=== PATIENT | female | born 1940 | race Caucasian/White ===

== ENCOUNTER 2016-12-02 03:50 | Inpatient (IN) | payer MEDICARE, OTHER ==
[2016-12-02] MEDS ORDERED: MORPHINE SULFATE 4 MG/ML SYRINGE IV STA (05:06)
--- NOTE | 2016-12-02 07:32 | ED ---
Lower Extremity Injury HPI - General Chief Complaint: Extremity Injury, Lower Stated Complaint: KNEE INJURY Time Seen by Provider: 12/02/16 03:52 Source: patient Mode of arrival: EMS Limitations: no limitations - History of Present Illness Initial Comments: This patient is a 76-year-old woman who presents to be evaluated for right knee injury. The patient states that she missed a step going into [employer] and tripped. She fell forward and landed on the anterior aspect of her right knee. Since that time she has had increasing swelling and pain. She states that she is now not able to support any weight. The patient was seen at [facility] having a computed tomography scan of her knee which appeared to show a nondisplaced tibial plateau fracture and a patellar hematoma. The patient has had previous ankle surgery with Dr. Shin Suarez and she therefore requested to be seen here by him. MD Complaint: knee injury -: hour(s) Injury: Knee: Right Type of Injury: blunt Place: other ([facility]) Severity: severe Improves With: immobilization Worsens With: weight bearing Context: fall Associated Symptoms: snap/pop sensation Treatments Prior to Arrival: cold therapy - Related Data Home Medications Medication Instructions Recorded Confirmed Calcium Carbonate [Calcium] 600 mg PO DAILY 12/02/16 12/02/16 Cholecalciferol (Vitamin D3) 2,000 unit PO BID 12/02/16 12/02/16 [Vitamin D3] Fish Oil/Dha/Epa [Fish Oil 1,200 1 cap PO DAILY 12/02/16 12/02/16 mg Fish Oil] Furosemide [Lasix] 40 mg PO MOWEFR 12/02/16 12/02/16 Levofloxacin [Levaquin] 500 mg PO DAILY 12/02/16 12/02/16 Levothyroxine Sodium 88 mcg PO DAILY 12/02/16 12/02/16 Metoprolol Tartrate [Lopressor] 12.5 mg PO BID 12/02/16 12/02/16 Montelukast [Singulair] 10 mg PO HS 12/02/16 12/02/16 Omeprazole 20 mg PO DAILY 12/02/16 12/02/16 Potassium 99 mg PO DAILY 12/02/16 12/02/16 Rosuvastatin Calcium [Crestor] 5 mg PO DAILY 12/02/16 12/02/16 Valsartan/Hydrochlorothiazide 0.5 tab PO DAILY 12/02/16 12/02/16 [Valsartan-Hctz 160-12.5 mg Tab] methylPREDNISolone Dose Pack See Taper PO DAILY 12/02/16 12/02/16 [Medrol Dose Pack] Allergies Allergy/AdvReac Type Severity Reaction Status Date / Time atorvastatin [From Lipitor] Allergy Chest Pain Verified 12/02/16 07:23 latex Allergy Rash/Hives Verified 12/02/16 07:23 Sulfa (Sulfonamide Allergy Rash/Hives Verified 12/02/16 07:23 Antibiotics) Review of Systems ROS Statement: Those systems with pertinent positive or pertinent negative responses have been documented in the HPI. ROS Other: All systems not noted in ROS Statement are negative. Constitutional: Denies: fever, chills Respiratory: Denies: cough, dyspnea Cardiovascular: Denies: chest pain, palpitations Gastrointestinal: Denies: abdominal pain, vomiting, diarrhea Genitourinary: Denies: dysuria, frequency Musculoskeletal: Reports: as per HPI, joint swelling, arthralgia. Denies: back pain Neurological: Denies: headache, weakness, numbness Past Medical History Past Medical History: Asthma, COPD, Hyperlipidemia, Hypertension Additional Past Medical History / Comment(s): hiatal hernia History of Any Multi-Drug Resistant Organisms: None Reported Past Surgical History: Hysterectomy Additional Past Surgical History / Comment(s): partial thyroidectomy, hemerrhoids Past Psychological History: No Psychological Hx Reported Smoking Status: Former smoker Past Alcohol Use History: None Reported Past Drug Use History: None Reported - Past Family History Mother Family Medical History: Congestive Heart Failure (CHF) Additional Family Medical History / Comment(s): Mother at the age of 87yrs. Father Family Medical History: Cancer Additional Family Medical History / Comment(s): Father had colitis. He at the age of 31yrs of colon cancer. General Exam Limitations: no limitations General appearance: alert, in no apparent distress Head exam: Present: atraumatic, normocephalic Eye exam: Present: normal appearance Neck exam: Present: normal inspection. Absent: tenderness Respiratory exam: Present: normal lung sounds bilaterally. Absent: respiratory distress, wheezes, rales, rhonchi, stridor, chest wall tenderness Cardiovascular Exam: Present: regular rate, normal rhythm, normal heart sounds. Absent: systolic murmur, diastolic murmur, rubs, gallop GI/Abdominal exam: Present: soft. Absent: distended, tenderness, guarding, rebound Extremities exam: Present: tenderness, normal capillary refill, joint swelling, other (Patient has tenderness and swelling to the anterior aspect of the right knee. No palpable deformity. The patient declines active range of motion exam and does not tolerate passive range of motion.). Absent: pedal edema, calf tenderness Back exam: Absent: CVA tenderness (R), CVA tenderness (L), vertebral tenderness Neurological exam: Present: alert. Absent: motor sensory deficit Skin exam: Present: warm, dry, intact, normal color. Absent: rash Course Vital Signs 12/02/16 12/02/16 12/02/16 03:52 05:26 06:03 Temperature 97.6 F 97.6 F Pulse Rate 85 91 87 Respiratory 16 20 14 Rate Blood Pressure 166/79 150/71 135/61 O2 Sat by Pulse 99 93 L 98 Oximetry 12/02/16 12/02/16 07:58 09:31 Temperature Pulse Rate 93 74 Respiratory 18 18 Rate Blood Pressure 146/73 139/64 O2 Sat by Pulse 97 98 Oximetry Medical Decision Making - Lab Data Result diagrams: 12/03/16 07:26 Disposition Clinical Impression: Traumatic hematoma of right knee, Tibial plateau fracture, right Disposition: HOME SELF-CARE Condition: Stable
[2016-12-02] MEDS ORDERED: NALOXONE 0.4 MG/ML 1 ML VIAL IV PRN (07:38)
[2016-12-02] MEDS: HYDROcodone/APAP 5-325MG 1 EACH TAB PO PRN ×2 (07:55→19:52)
[2016-12-02] MEDS ORDERED: NON-FORMULARY DRUG (Rosuvastatin Calcium [Crestor] 5 MG) PO SCH (09:00)
[2016-12-02] MEDS ORDERED: NON-FORMULARY DRUG (Fish Oil/Dha/Epa [Fish Oil 1,200 Mg Fish Oil] 1 CAP) PO SCH (09:00)
[2016-12-02] MEDS: IPRATROPIUM-ALBUTEROL 3 ML NEB INHALATION PRN ×3 (11:06→20:19)
[2016-12-02] MEDS: SODIUM CHLORIDE 0.9% 1,000 ML IV SCH (11:14)
[2016-12-02] MEDS: HYDROCHLOROTHIAZIDE 25 MG TAB PO SCH (11:16)
[2016-12-02] MEDS: ENOXAPARIN 40 MG/0.4 ML SYRINGE SQ SCH (11:16)
[2016-12-02] MEDS: MORPHINE SULFATE 4 MG/ML SYRINGE IV PRN ×2 (11:22→22:41)
[2016-12-02] MEDS: CALCIUM CARBONATE 500 MG CHEWABLE PO SCH (11:24)
[2016-12-02] MEDS: METOPROLOL TARTRATE 12.5 MG TAB PO SCH ×2 (11:24→21:02)
[2016-12-02] MEDS: LEVOTHYROXINE 88 MCG TAB PO SCH (11:24)
[2016-12-02] MEDS: LEVOFLOXACIN 500 MG TAB PO SCH (11:25)
[2016-12-02] MEDS: POTASSIUM CHLORIDE ORAL LIQUID 40 MEQ/30 ML CUP PO SCH (11:25)
[2016-12-02] MEDS: CHOLECALCIFEROL 1,000 UNIT TAB PO SCH ×2 (11:25→21:02)
[2016-12-02] MEDS: PANTOPRAZOLE 40 MG TABLET PO SCH (11:26)
[2016-12-02] MEDS: VALSARTAN 80 MG TAB PO SCH (11:26)
--- NOTE | 2016-12-02 12:42 | P.CONS ---
History of Present Illness - Reason for Consult Consult date: 12/02/16 Medical management Requesting physician: Shin Suarez - Chief Complaint Fall with nondisplaced tibial fracture, COPD, hypertension, hyperlipidemia, - History of Present Illness 76-year-old female [address] Ball's patient with past medical history of COPD and chronic bronchitis, history of hypertension, hyperlipidemia, and chronic history of hiatal hernia with multiple blood episode of aspiration pneumonia and infection repeatedly. Patient was transferred from 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 Pain become much worse over night ended up going to [facility] where was seen her CT of the leg showed prepatellar hematoma and nondisplaced medial Tibial plateau fracture. Patient requested to be transfer to see Dr. Shin Suarez. Review of Systems Constitutional: Reports chronic headaches, Reports fatigue, Reports fever, Reports lethargy, Reports weight gain, Denies as per HPI, Denies anorexia, Denies chills, Denies chronic pain, Denies daytime sleepiness, Denies malaise, Denies night sweats, Denies poor appetite, Denies sweats, Denies weakness, Denies weight loss Eyes: bilateral as per HPI Ears: bilateral: decreased hearing Ears, nose, mouth and throat: Reports nasal congestion, Reports sinus pain, Reports sinus pressure, Denies as per HPI, Denies ant. neck pain, Denies bleeding gums, Denies dental pain, Denies dysphagia, Denies epistaxis, Denies headache, Denies hoarseness, Denies mouth pain, Denies nasal discharge, Denies neck fullness/pressure, Denies neck lump, Denies nose pain, Denies odynophagia, Denies post-nasal drip, Denies swelling in mouth, Denies swelling in throat, Denies sore throat, Denies vertigo, Denies voice changes Cardiovascular: Reports claudication, Reports decreased exercise tolerance, Reports dyspnea on exertion, Reports edema, Reports high blood pressure, Reports irregular heart beat, Reports leg edema, Reports lightheadedness, Reports orthopnea, Reports paroxysmal nocturnal dyspnea, Reports rapid heart beat, Reports shortness of breath, Denies as per HPI, Denies chest pain, Denies palpitations, Denies phlebitis, Denies syncope Respiratory: Reports congestion, Reports cough, Reports dyspnea, Reports pain on inspiration, Reports respiratory infections, Reports wheezing, Denies as per HPI, Denies cough with sputum, Denies excessive sputum, Denies hemoptysis, Denies home oxygen, Denies pain, Denies pleurisy, Denies sleep apnea, Denies snoring Gastrointestinal: Reports abdominal pain, Reports bloating, Reports dyspepsia, Reports excessive gas, Reports heartburn, Reports indigestion, Reports nausea, Denies as per HPI, Denies belching, Denies BRBPR, Denies change in bowel habits , Denies coffee ground emesis, Denies constipation, Denies diarrhea, Denies early satiety, Denies hematemesis, Denies hematochezia, Denies jaundice, Denies lactose intolerance, Denies loss of appetite, Denies melena, Denies vomiting Genitourinary: Reports dysuria, Reports urgency, Reports urinary frequency, Denies as per HPI, Denies abnormal vaginal bleeding, Denies decreased libido, Denies difficulty conceiving, Denies difficulty voiding, Denies dysmenorrhea, Denies dyspareunia, Denies flank pain, Denies genital sores, Denies hematuria, Denies hot flashes, Denies incomplete emptying, Denies kidney stones, Denies menorrhagia, Denies mixed incontinence, Denies nocturia, Denies pelvic pain, Denies post void dribbling, Denies , Denies prolapse symptoms, Denies stress incontinence, Denies urge incontinence, Denies vaginal discharge, Denies vaginal dryness, Denies vaginal itching, Denies vaginal odor Musculoskeletal: Reports fractures, Reports frequent falls, Reports gait dysfunction, Reports loss of height, Reports low back pain, Reports myalgias, Reports neck pain, Denies as per HPI, Denies arm numbness/tingling, Denies atrophy, Denies hot joints, Denies leg numbness/tingling, Denies limitation of motion, Denies morning stiffness, Denies muscle cramps, Denies muscle weakness, Denies neck stiffness, Denies prior amputations, Denies redness of joints, Denies shooting arm pain, Denies shooting leg pain Musculoskeletal: right: knee pain, knee stiffness, knee swelling, bilateral: ankle pain Integumentary: Reports pruritus, Reports rash, Reports sores, Denies as per HPI , Denies acne, Denies boils, Denies brittle nails, Denies change in hair/nails, Denies color changes, Denies darkening of skin, Denies depigmentation, Denies dryness, Denies foot/leg ulcers, Denies growths, Denies hirsutism, Denies lesions, Denies onychomycosis, Denies striae, Denies unusual bruising, Denies wounds Neurological: Reports paresthesias, Reports tingling, Denies as per HPI, Denies aphasia, Denies ataxia, Denies balance difficulties, Denies burning pain, Denies change in mentation, Denies change in smell/taste, Denies change in speech, Denies confusion, Denies convulsions, Denies double vision, Denies gait dysfunction, Denies head injury, Denies headaches, Denies hearing difficulties, Denies lack of coordination, Denies loss of vision, Denies memory loss, Denies migraines, Denies motor disturbance, Denies numbness, Denies paralysis, Denies seizures, Denies sensory deficit, Denies spasticity, Denies syncope, Denies tic , Denies transient paralysis, Denies tremors, Denies vertigo, Denies weakness, Denies visual changes Psychiatric: Reports anhedonia, Reports anxiety, Denies as per HPI, Denies anxiety attacks, Denies change in appetite, Denies change in libido, Denies change in sleep habits, Denies confusion, Denies depression, Denies difficulty concentrating, Denies disorientation, Denies hallucinations, Denies hopelessness , Denies hypersomnia, Denies insomnia, Denies irritability, Denies memory loss, Denies mood swings, Denies paranoia, Denies sadness/tearfulness, Denies sleep disturbances, Denies suicidal ideation Endocrine: Reports cold intolerance, Reports excessive thirst, Reports fatigue, Reports polyuria, Denies as per HPI, Denies deepening of the voice, Denies excessive sweating, Denies flushing, Denies heat intolerance, Denies high blood sugars, Denies increase in ring/shoe/hat size, Denies low blood sugars, Denies nocturia, Denies palpitations, Denies polydipsia, Denies polyphagia, Denies proptosis, Denies recent glucocorticoid use, Denies thyroid mass, Denies weight change Hematologic/Lymphatic: Reports easy bruising, Denies as per HPI, Denies easy bleeding, Denies lymphadenopathy, Denies lymphedema, Denies thrombophilia Allergic/Immunologic: Reports allergic rhinitis, Denies as per HPI, Denies anaphylaxis, Denies angioedema, Denies gluten intolerance, Denies persistent infections, Denies seasonal allergies, Denies urticaria, Denies wheezing Past Medical History Past Medical History: Asthma, COPD, GERD/Reflux, GI Bleed, Hyperlipidemia, Hypertension, Myocardial Infarction ([place]), Pneumonia, Renal Disease, Thyroid Disorder Additional Past Medical History / Comment(s): Gastritis, hiatal hernia, aspiration pneumonias, gastric ulcers, bronchitis, mitral/aortic/triduspid valve leaks, CKD stage III, hypothyroid, varicosities, occasional swelling of bilateral ankles up to knees, cataracts bilaterally. Last Myocardial Infarction Date:: 2012 History of Any Multi-Drug Resistant Organisms: None Reported Past Surgical History: Hysterectomy, Orthopedic Surgery Additional Past Surgical History / Comment(s): partial thyroidectomy, EGD/ colonoscopy, hemorrhoidectomy, R ankle surgery due to fracture. Past Anesthesia/Blood Transfusion Reactions: No Reported Reaction Smoking Status: Former smoker - Past Family History Mother Family Medical History: Congestive Heart Failure (CHF) Additional Family Medical History / Comment(s): Mother at the age of 87yrs. Father Family Medical History: Cancer Additional Family Medical History / Comment(s): Father had colitis. He at the age of 31yrs of colon cancer. Medications and Allergies Home Medications Medication Instructions Recorded Confirmed Type Calcium Carbonate [Calcium] 600 mg PO DAILY 12/02/16 12/02/16 History Cholecalciferol (Vitamin D3) 2,000 unit PO BID 12/02/16 12/02/16 History [Vitamin D3] Fish Oil/Dha/Epa [Fish Oil 1,200 1 cap PO DAILY 12/02/16 12/02/16 History mg Fish Oil] Furosemide [Lasix] 40 mg PO MOWEFR 12/02/16 12/02/16 History Levofloxacin [Levaquin] 500 mg PO DAILY 12/02/16 12/02/16 History Levothyroxine Sodium 88 mcg PO DAILY 12/02/16 12/02/16 History Metoprolol Tartrate [Lopressor] 12.5 mg PO BID 12/02/16 12/02/16 History Montelukast [Singulair] 10 mg PO HS 12/02/16 12/02/16 History Omeprazole 20 mg PO DAILY 12/02/16 12/02/16 History Potassium 99 mg PO DAILY 12/02/16 12/02/16 History Rosuvastatin Calcium [Crestor] 5 mg PO DAILY 12/02/16 12/02/16 History Valsartan/Hydrochlorothiazide 0.5 tab PO DAILY 12/02/16 12/02/16 History [Valsartan-Hctz 160-12.5 mg Tab] methylPREDNISolone Dose Pack See Taper PO DAILY 12/02/16 12/02/16 History [Medrol Dose Pack] Allergies Allergy/AdvReac Type Severity Reaction Status Date / Time atorvastatin [From Lipitor] Allergy Chest Pain Verified 12/02/16 07:23 latex Allergy Rash/Hives Verified 12/02/16 07:23 Sulfa (Sulfonamide Allergy Rash/Hives Verified 12/02/16 07:23 Antibiotics) Physical Exam Vitals: Vital Signs Temp Pulse Resp BP Pulse Ox 12/02/16 11:16 90 12/02/16 11:07 88 12/02/16 09:31 74 18 139/64 98 12/02/16 07:58 93 18 146/73 97 12/02/16 06:03 87 14 135/61 98 12/02/16 05:26 97.6 F 91 20 150/71 93 L 12/02/16 03:52 97.6 F 85 16 166/79 99 Intake and Output 12/01/16 12/02/16 12/02/16 22:59 06:59 14:59 Other: Voiding Method Toilet Weight 82.1 kg - Constitutional General appearance: average body habitus, cooperative, no disheveled, no mild distress, no morbidly obese, no acute distress, no obese, no severe distress, no thin - EENT Eyes: no abnormal pupil, no anicteric sclerae, no disc margins sharp, no edentulous, no EOMI, no PERRLA, no fundus normal, no photophobia, no dentition normal, no poor dentition, no ptosis, scleral icterus, no normal appearance ENT: no hard of hearing, no hearing grossly normal, no NA/AT, normal oropharynx , no other, no pharyngeal erythema, no thrush, no tonsillar exudates, no tonsillar swelling Ears: bilateral: normal, bulging - Neck Neck: no lymphadenopathy, normal ROM, no other, no rigidity, no stridor, no thyromegaly Carotids: bilateral: upstroke normal Thyroid: bilateral: normal size - Respiratory Respiratory: bilateral: diminished, dullness, rales - Cardiovascular Rhythm: regular Heart sounds: normal: S1, S2 Abnormal Heart Sounds: systolic murmur, S3 Gallop - Gastrointestinal General gastrointestinal: absent bowel sounds, no decreased bowel sounds, no distended, no hepatomegaly, no hyperactive bowel sounds, no normal bowel sounds , no organomegaly, no rigid, no scaphoid, soft, no splenomegaly, no tenderness, no umbilical hernia, no ventral hernia - Integumentary Integumentary: no calor, no cellulitis, no cyanotic, no decreased turgor, no flushed, no jaundiced, normal, no normal turgor, pale, rash, no ulcer - Neurologic Neurologic: CNII-XII intact - Musculoskeletal Right knee has a brace on still have significant swelling pain and discomfort not been able to their weight on it. Musculoskeletal: gait normal, generalized weakness, strength equal bilaterally - Psychiatric Psychiatric: A&O x's 3, appropriate affect Results CBC & Chem 7: 12/03/16 07:26 12/03/16 07:26 Assessment and Plan Plan: 1 nondisplaced medial tibial plateau fracture: Patient is seen or felt surgical intervention versus conservative management with brace physical therapy and no weightbearing might be recommended. 2 COPD with mild exacerbation with recent episode remain on tapering dose of steroid along with albuterol and Pulmicort. 3 severe bronchitis: With recurrent episode of bronchitis and aspiration pneumonia has been on Levaquin will continue medication to finish her current course and dose. 4 severe hiatal hernia: Patient is on pantoprazole daily continue medication and if needed can add Pepcid daily as well. 5 hypertension: Remain on valsartan HCT and metoprolol. 6 Hypothyroidism continue levothyroxine. 7 CKD stage 3 still doing BUN and Creat daily and keep Hydration. 8 Hyperlipidemia: On Crestor 5 mg a day. 9 GI prophylaxis: Patient will be on Protonix. 10 DVT prophylaxis: Patient will be on Lovenox 40 mg daily. CODE STATUS: Full code. Dr. Suarez thank you much for the consult if I can be any further help to please let me know.
--- NOTE | 2016-12-02 13:13 | P.HPOR ---
History of Present Illness H&P Date: 12/02/16 Chief Complaint: tibial plateau fracture This jarad 76-year-old female who fell yesterday when she missed the top step, sustaining injury to her right knee. On exam and x-ray in the emergency department she is found to have a nondisplaced tibial plateau fracture which was confirmed with CT scan. Emergency department at [facility] notified our office of the injury. The ER was advised the patient may be discharged to home in a knee immobilizer and follow up with our office. She was subsequently transferred to [facility] emergency department and admitted to our service. We were notified after the fact. The patient is seen and evaluated and [facility]'s emergency department. Past Medical History Past Medical History: Asthma, COPD, GERD/Reflux, GI Bleed, Hyperlipidemia, Hypertension, Myocardial Infarction ([place]), Pneumonia, Renal Disease, Thyroid Disorder Additional Past Medical History / Comment(s): Gastritis, hiatal hernia, aspiration pneumonias, gastric ulcers, bronchitis, mitral/aortic/triduspid valve leaks, CKD stage III, hypothyroid, varicosities, occasional swelling of bilateral ankles up to knees, cataracts bilaterally. Last Myocardial Infarction Date:: 2012 History of Any Multi-Drug Resistant Organisms: None Reported Past Surgical History: Hysterectomy, Orthopedic Surgery Additional Past Surgical History / Comment(s): partial thyroidectomy, EGD/ colonoscopy, hemorrhoidectomy, R ankle surgery due to fracture. Past Anesthesia/Blood Transfusion Reactions: No Reported Reaction Smoking Status: Former smoker - Past Family History Mother Family Medical History: Congestive Heart Failure (CHF) Additional Family Medical History / Comment(s): Mother at the age of 87yrs. Father Family Medical History: Cancer Additional Family Medical History / Comment(s): Father had colitis. He at the age of 31yrs of colon cancer. Medications and Allergies Home Medications Medication Instructions Recorded Confirmed Type Calcium Carbonate [Calcium] 600 mg PO DAILY 12/02/16 12/02/16 History Cholecalciferol (Vitamin D3) 2,000 unit PO BID 12/02/16 12/02/16 History [Vitamin D3] Fish Oil/Dha/Epa [Fish Oil 1,200 1 cap PO DAILY 12/02/16 12/02/16 History mg Fish Oil] Furosemide [Lasix] 40 mg PO MOWEFR 12/02/16 12/02/16 History Levofloxacin [Levaquin] 500 mg PO DAILY 12/02/16 12/02/16 History Levothyroxine Sodium 88 mcg PO DAILY 12/02/16 12/02/16 History Metoprolol Tartrate [Lopressor] 12.5 mg PO BID 12/02/16 12/02/16 History Montelukast [Singulair] 10 mg PO HS 12/02/16 12/02/16 History Omeprazole 20 mg PO DAILY 12/02/16 12/02/16 History Potassium 99 mg PO DAILY 12/02/16 12/02/16 History Rosuvastatin Calcium [Crestor] 5 mg PO DAILY 12/02/16 12/02/16 History Valsartan/Hydrochlorothiazide 0.5 tab PO DAILY 12/02/16 12/02/16 History [Valsartan-Hctz 160-12.5 mg Tab] methylPREDNISolone Dose Pack See Taper PO DAILY 12/02/16 12/02/16 History [Medrol Dose Pack] Allergies Allergy/AdvReac Type Severity Reaction Status Date / Time atorvastatin [From Lipitor] Allergy Chest Pain Verified 12/02/16 07:23 latex Allergy Rash/Hives Verified 12/02/16 07:23 Sulfa (Sulfonamide Allergy Rash/Hives Verified 12/02/16 07:23 Antibiotics) Physical Examination this is a pleasant 76-year-old female in no acute distress. She is alert and oriented 3. Exam of the head and neck reveal no obvious deformity. She has full cervical spine motion without difficulty or pain. There is no pain with palpation about the cervical spine or paraspinal musculature. Exam of the upper extremities reveals no obvious deformity. There is no pain about the shoulders, elbows, wrists or fingers. No swelling or ecchymosis noted. She has fairly good motion of the upper extremities. Exam of the lower extremities reveals significant ecchymosis about the right knee with mild to moderate swelling. There are very subtle abrasions noted. No open wounds or lacerations. She is able to straight leg raise bilaterally. No pain with log roll bilaterally. She has full foot and ankle motion bilaterally. Neurovascular status to the lower extremities is intact. Results CT scan of the right knee reveals a nondisplaced tibial plateau fracture. No other fractures identified. Assessment and Plan (1) Tibial plateau fracture, right Status: Acute Plan: The clinical and CT scan findings are discussed with the patient. I ordered a knee immobilizer and physical therapy for gait training. She is nonweightbearing to the right lower extremity.we will reevaluate tomorrow for possible discharge home.
[2016-12-02 14:50] VITALS: BMI 35.3
[2016-12-02] MEDS: MONTELUKAST 10 MG TAB PO SCH (21:02)
[2016-12-02] MEDS: CRESTOR 5 MG PO SCH (21:51)
[2016-12-03] MEDS: LEVOTHYROXINE 88 MCG TAB PO SCH (06:25)
[2016-12-03] MEDS: IPRATROPIUM-ALBUTEROL 3 ML NEB INHALATION PRN ×4 (07:46→20:22)
[2016-12-03 07:56] LABS: Basophils % (A) 1 %; Eosinophils # (A) 0.4 k/uL (0-0.7); Eosinophils % (A) 4 %; HCT 37.1 % (34.0-46.0); HDW 2.29; HGB 11.8 gm/dL (11.4-16.0); Hypochromasia Slight; Luc # (Auto) 0.19; Luc % (Auto) 2; Lymphocytes # (A) 1.6 k/uL (1.0-4.8); Lymphocytes % (A) 17 %; MCH 28.9 pg (25.0-35.0); MCHC 31.8 g/dL (31.0-37.0); MCV 90.9 fL (80.0-100.0); Monocytes # (A) 0.9 k/uL (0-1.0); Monocytes % (A) 10 %; Neutrophils # (A) 6.2 k/uL (1.3-7.7); Neutrophils % (A) 67 %; RBC 4.08 m/uL (3.80-5.40); RDW 14.7 % (11.5-15.5); WBC 9.2 k/uL (3.8-10.6); WBC (Perox) 9.68
[2016-12-03 08:06] LABS: Calcium 9.5 mg/dL (8.4-10.2); Potassium 3.7 mmol/L (3.5-5.1); Total Bilirubin 0.4 mg/dL (0.2-1.3)
[2016-12-03] MEDS: ENOXAPARIN 40 MG/0.4 ML SYRINGE SQ SCH (08:19)
[2016-12-03] MEDS: POTASSIUM CHLORIDE ORAL LIQUID 40 MEQ/30 ML CUP PO SCH (08:19)
[2016-12-03] MEDS: LEVOFLOXACIN 500 MG TAB PO SCH (08:19)
[2016-12-03] MEDS: METOPROLOL TARTRATE 12.5 MG TAB PO SCH ×2 (08:19→22:17)
[2016-12-03] MEDS: PANTOPRAZOLE 40 MG TABLET PO SCH (08:19)
[2016-12-03] MEDS: HYDROCHLOROTHIAZIDE 25 MG TAB PO SCH (08:20)
[2016-12-03] MEDS: FUROSEMIDE 40 MG TAB PO SCH (08:20)
[2016-12-03] MEDS: SODIUM CHLORIDE 0.9% 1,000 ML IV SCH (08:20)
[2016-12-03] MEDS: CHOLECALCIFEROL 1,000 UNIT TAB PO SCH ×2 (08:20→22:16)
[2016-12-03] MEDS: CALCIUM CARBONATE 500 MG CHEWABLE PO SCH (08:20)
[2016-12-03] MEDS: VALSARTAN 80 MG TAB PO SCH (10:35)
--- NOTE | 2016-12-03 11:01 | P.PN ---
Subjective Principal diagnosis: Right tibial plateau fracture Pleasant 76 year old female who we are following for a stable tibial plateau fracture, awaiting placement for inpatient rehab. She states pain is well controlled and has no current complaints. Objective - Vital Signs Vital signs: Vital Signs Temp 96.4 F L 12/03/16 07:00 Pulse 88 12/03/16 08:01 Resp 18 12/03/16 07:00 BP 120/67 12/03/16 07:00 Pulse Ox 96 12/03/16 07:00 Intake & Output 12/02/16 12/03/16 12/03/16 18:59 06:59 18:59 Intake Total 1000 Balance 1000 Weight 82.1 kg Intake: Intake, IV Titration 1000 Amount Sodium Chloride 0.9% 1, 1000 000 ml @ 20 mls/hr IV . Q24H [facility] Rx#:[id number] Other: Voiding Method Bedpan Bedpan # Voids 1 2 1 - Exam 76 year old female in no acute distress, A&O x 3. Able to do straight leg raise, neurovascularly intact. Full foot and ankle motion with no pain, negative Homans. Knee immobilizer in place on right leg. - Labs CBC & Chem 7: 12/03/16 07:26 12/03/16 07:26 Labs: Abnormal Lab Results - Last 24 Hours (Table) 12/03/16 Range/Units 07:26 BUN 41 H (7-17) mg/dL Creatinine 2.49 H (0.52-1.04) mg/dL Total Protein 6.0 L (6.3-8.2) g/dL Albumin 3.1 L (3.5-5.0) g/dL Assessment and Plan (1) Tibial plateau fracture, right Status: Acute Plan: The clinical and CT scan findings are discussed with the patient. I ordered a knee immobilizer and physical therapy for gait training. She is nonweightbearing to the right lower extremity.we will reevaluate tomorrow for possible discharge to rehab.
--- NOTE | 2016-12-03 12:15 | P.PN ---
Subjective 76-year-old female [address] Ball[address] patient with past medical history of COPD and chronic bronchitis, history of hypertension, hyperlipidemia, and chronic history of hiatal hernia with multiple blood episode of aspiration pneumonia and infection repeatedly. 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 Pain become much worse over night ended up going to [facility] where was seen her CT of the leg showed prepatellar hematoma and nondisplaced medial Tibial plateau fracture. Patient requested to be transfer to see Dr. Shin Suarez. 12/03: The patient was seen and evaluated today. She was sitting up in her recliner with leg elevated and and in knee immobilizer. She is currently nonweightbearing. Kidney function BUN 41, creatinine 2.49, patient has known history of chronic kidney disease stage III. Incentive spirometer ordered today. She reports pain is controlled with current pain medications. Patient remains on Levaquin for her bronchitis and COPD. Objective - Vital Signs Vital signs: Vital Signs Temp 96.4 F L 12/03/16 07:00 Pulse 88 12/03/16 08:01 Resp 18 12/03/16 07:00 BP 120/67 12/03/16 07:00 Pulse Ox 96 12/03/16 07:00 Intake & Output 12/02/16 12/03/16 12/03/16 18:59 06:59 18:59 Intake Total 1000 Balance 1000 Weight 82.1 kg Intake: Intake, IV Titration 1000 Amount Sodium Chloride 0.9% 1, 1000 000 ml @ 20 mls/hr IV . Q24H [facility] Rx#:[id number] Other: Voiding Method Bedpan Bedpan # Voids 1 2 2 - Exam - Constitutional General appearance: average body habitus, cooperative, no disheveled, no mild distress, no morbidly obese, no acute distress, no obese, no severe distress, no thin - EENT Eyes: no abnormal pupil, no anicteric sclerae, no disc margins sharp, no edentulous, no EOMI, no PERRLA, no fundus normal, no photophobia, no dentition normal, no poor dentition, no ptosis, scleral icterus, no normal appearance ENT: no hard of hearing, no hearing grossly normal, no NA/AT, normal oropharynx , no other, no pharyngeal erythema, no thrush, no tonsillar exudates, no tonsillar swelling Ears: bilateral: normal, bulging - Neck Neck: no lymphadenopathy, normal ROM, no other, no rigidity, no stridor, no thyromegaly Carotids: bilateral: upstroke normal Thyroid: bilateral: normal size - Respiratory Respiratory: bilateral: diminished, dullness, rales - Cardiovascular Rhythm: regular Heart sounds: normal: S1, S2 Abnormal Heart Sounds: systolic murmur, S3 Gallop - Gastrointestinal General gastrointestinal: absent bowel sounds, no decreased bowel sounds, no distended, no hepatomegaly, no hyperactive bowel sounds, no normal bowel sounds , no organomegaly, no rigid, no scaphoid, soft, no splenomegaly, no tenderness, no umbilical hernia, no ventral hernia - Integumentary Integumentary: no calor, no cellulitis, no cyanotic, no decreased turgor, no flushed, no jaundiced, normal, no normal turgor, pale, rash, no ulcer - Neurologic Neurologic: CNII-XII intact - Musculoskeletal Right knee has a brace on still have significant swelling pain and discomfort not been able to their weight on it. Musculoskeletal: gait normal, generalized weakness, strength equal bilaterally - Psychiatric Psychiatric: A&O x's 3, appropriate affect - Labs CBC & Chem 7: 12/03/16 07:26 12/03/16 07:26 Labs: Abnormal Lab Results - Last 24 Hours (Table) 12/03/16 Range/Units 07:26 BUN 41 H (7-17) mg/dL Creatinine 2.49 H (0.52-1.04) mg/dL Total Protein 6.0 L (6.3-8.2) g/dL Albumin 3.1 L (3.5-5.0) g/dL Assessment and Plan Plan: 1 nondisplaced medial tibial plateau fracture: Patient is seen or felt surgical intervention versus conservative management with brace physical therapy and no weightbearing might be recommended. 2 COPD with mild exacerbation with recent episode remain on tapering dose of steroid along with albuterol and Pulmicort. 3 severe bronchitis: With recurrent episode of bronchitis and aspiration pneumonia has been on Levaquin will continue medication to finish her current course and dose. 4 severe hiatal hernia: Patient is on pantoprazole daily continue medication and if needed can add Pepcid daily as well. 5 hypertension: Remain on valsartan HCT and metoprolol. 6 Hypothyroidism continue levothyroxine. 7 CKD stage 3 still doing BUN and Creat daily and keep Hydration. 8 Hyperlipidemia: On Crestor 5 mg a day. 9 GI prophylaxis: Patient will be on Protonix. 10 DVT prophylaxis: Patient will be on Lovenox 40 mg daily. CODE STATUS: Full code. The above impression and plan of care have been discussed and directed by signing physician. Emily Cortez nurse practitioner acting as scribe for signing physician.
--- NOTE | 2016-12-03 12:33 | P.CONS ---
History of Present Illness - Chief Complaint Walking difficulty - History of Present Illness I had the op to see patient for inpatient rehab consultation with regard to walking difficulty. She reports fall attempting steps and right knee pain. X- ray demonstrated tibial plateau fracture. Evaluated by orthopedics and currently treated with knee immobilizer and nonweightbearing. PT prescribed and discussed maximal assistance for sitting and transfers. I have added OT. Previous functional history as elicited from patient: 76-year-old left-handed white female is lives in the seventh floor apartment, elevator's, alone. History smoking but doesn't smoke or drink currently. Retired. Describes independent with own cooking, laundry, driving, sitdown shower and gait without device. She did have a standard cane though. Dr. Ball is regular doctor. Family history of cancer in father and cardiac disease in mother. Review of Systems Review of systems: ENT: Denies sneezes or discharge. Eyes: Denies discharge or photophobia. Cardiac: Denies chest pain or palpitation. Pulmonary: Denies cough or shortness of breath. Breast: Denies discharge or lumps. Gastrointestinal: Denies nausea, emesis, constipation, diarrhea. Genitourinary: Denies discharge or frequency. Musculoskeletal: Discomfort and right knee. Neurologic: Denies motor or sensory change. Endocrine: Denies shakes or sweats. Oncology: Denies cancers. Dermatologic: Denies rash, itching, pruritus. ALLERGY/immunology: Denies sneezes, rashes. Past Medical History Past Medical History: Asthma, COPD, GERD/Reflux, GI Bleed, Hyperlipidemia, Hypertension, Myocardial Infarction (CT), Pneumonia, Renal Disease, Thyroid Disorder Additional Past Medical History / Comment(s): Gastritis, hiatal hernia, aspiration pneumonias, gastric ulcers, bronchitis, mitral/aortic/triduspid valve leaks, CKD stage III, hypothyroid, varicosities, occasional swelling of bilateral ankles up to knees, cataracts bilaterally. Last Myocardial Infarction Date:: 2012 History of Any Multi-Drug Resistant Organisms: None Reported Past Surgical History: Hysterectomy, Orthopedic Surgery Additional Past Surgical History / Comment(s): partial thyroidectomy, EGD/ colonoscopy, hemorrhoidectomy, R ankle surgery due to fracture. Past Anesthesia/Blood Transfusion Reactions: No Reported Reaction Smoking Status: Former smoker - Past Family History Mother Family Medical History: Congestive Heart Failure (CHF) Additional Family Medical History / Comment(s): Mother at the age of 87yrs. Father Family Medical History: Cancer Additional Family Medical History / Comment(s): Father had colitis. He at the age of 31yrs of colon cancer. Medications and Allergies Home Medications Medication Instructions Recorded Confirmed Type Calcium Carbonate [Calcium] 600 mg PO DAILY 12/02/16 12/02/16 History Cholecalciferol (Vitamin D3) 2,000 unit PO BID 12/02/16 12/02/16 History [Vitamin D3] Fish Oil/Dha/Epa [Fish Oil 1,200 1 cap PO DAILY 12/02/16 12/02/16 History mg Fish Oil] Furosemide [Lasix] 40 mg PO MOWEFR 12/02/16 12/02/16 History Levofloxacin [Levaquin] 500 mg PO DAILY 12/02/16 12/02/16 History Levothyroxine Sodium 88 mcg PO DAILY 12/02/16 12/02/16 History Metoprolol Tartrate [Lopressor] 12.5 mg PO BID 12/02/16 12/02/16 History Montelukast [Singulair] 10 mg PO HS 12/02/16 12/02/16 History Omeprazole 20 mg PO DAILY 12/02/16 12/02/16 History Potassium 99 mg PO DAILY 12/02/16 12/02/16 History Rosuvastatin Calcium [Crestor] 5 mg PO DAILY 12/02/16 12/02/16 History Valsartan/Hydrochlorothiazide 0.5 tab PO DAILY 12/02/16 12/02/16 History [Valsartan-Hctz 160-12.5 mg Tab] methylPREDNISolone Dose Pack See Taper PO DAILY 12/02/16 12/02/16 History [Medrol Dose Pack] Allergies Allergy/AdvReac Type Severity Reaction Status Date / Time atorvastatin [From Lipitor] Allergy Chest Pain Verified 12/02/16 07:23 latex Allergy Rash/Hives Verified 12/02/16 07:23 Sulfa (Sulfonamide Allergy Rash/Hives Verified 12/02/16 07:23 Antibiotics) Physical Exam Vitals: Vital Signs Temp Pulse Pulse Resp BP Pulse Ox 12/03/16 08:01 88 12/03/16 07:46 88 12/03/16 07:00 96.4 F L 72 18 120/67 96 12/02/16 23:00 97.0 F L 64 18 108/55 97 12/02/16 20:57 73 120/57 96 12/02/16 20:31 88 12/02/16 20:19 86 12/02/16 15:56 69 18 12/02/16 15:55 84 12/02/16 15:44 86 12/02/16 15:00 96.9 F L 69 18 95/56 92 L Intake and Output 12/02/16 12/03/16 12/03/16 22:59 06:59 14:59 Intake Total 1000 Balance 1000 Intake: Intake, IV Titration 1000 Amount Sodium Chloride 0.9% 1, 1000 000 ml @ 20 mls/hr IV . Q24H [facility] Rx#:[id number] Other: Voiding Method Bedpan Bedpan # Voids 1 2 2 Skin: Good color, texture, turgor. In fact, appears younger than stated age. General: Obese and comfortable appearance. Head: Normocephalic, atraumatic. Eyes: Symmetric. Pupils equal round. Ears: Symmetric. Hearing within normal limits. Mouth: Clear. Neck: Supple. Carotid without bruit. Cardiac: Regular rate and rhythm. Lungs: Clear anteriorly and posteriorly. Abdomen: Soft active nontender obese. Extremities: Normal tone. Neurological: Mental status: Alert, cooperative, pleasant. Cranial nerves: Symmetric facial tone and trapezius. Motor: Actively elevates both arms and left leg. Active movement right ankle. Difficulty elevating right leg secondary to right knee pain. Sensation: Intact throughout. DTRs: Symmetric and equal throughout. Mobility: Sits and stands with maximal assistance. Results CBC & Chem 7: 12/03/16 07:26 12/03/16 07:26 Labs: Abnormal Lab Results - Last 24 Hours (Table) 12/03/16 Range/Units 07: BUN 41 H (7-17) mg/dL Creatinine 2.49 H (0.52-1.04) mg/dL Total Protein 6.0 L (6.3-8.2) g/dL Albumin 3.1 L (3.5-5.0) g/dL Assessment and Plan (1) Tibial plateau fracture, right Status: Acute Plan: Impression: 1. Walking difficulty. 2. Right tibial plateau fracture. 3. Morbid obesity. 4. COPD/asthma. 5. Hypertension. 6. Dyslipidemia. 7. History of CT. 8. Renal disease. 9. Thyroid disease. Comments and plan: PT has started and this demonstrated safety concern. I have added OT. Patient would require PT and OT need prior to full inpatient rehab. We'll review patient's case Tuesday a.m.
[2016-12-03] MEDS: CRESTOR 5 MG PO SCH (18:17)
[2016-12-03] MEDS: MONTELUKAST 10 MG TAB PO SCH (22:17)
[2016-12-04] MEDS: HYDROcodone/APAP 5-325MG 1 EACH TAB PO PRN ×2 (05:25→20:10)
[2016-12-04] MEDS: LEVOTHYROXINE 88 MCG TAB PO SCH (06:28)
[2016-12-04] MEDS: IPRATROPIUM-ALBUTEROL 3 ML NEB INHALATION PRN ×3 (07:36→20:28)
[2016-12-04 08:42] LABS: Basophils % (A) 0 %; CH 28.3; CHCM 31.3; Eosinophils # (A) 0.6 k/uL (0-0.7); Eosinophils % (A) 6 %; HDW 2.28; HGB 12.4 gm/dL (11.4-16.0); Luc # (Auto) 0.17; Luc % (Auto) 2; Lymphocytes # (A) 1.2 k/uL (1.0-4.8); Lymphocytes % (A) 12 %; MCH 28.7 pg (25.0-35.0); MCHC 31.6 g/dL (31.0-37.0); MCV 90.8 fL (80.0-100.0); Mean Platelet Volume 7.9; Monocytes # (A) 0.8 k/uL (0-1.0); Monocytes % (A) 8 %; Neutrophils # (A) 7.3 k/uL (1.3-7.7); Neutrophils % (A) 73 %; RDW 14.6 % (11.5-15.5); WBC (Perox) 9.83
[2016-12-04 08:53] LABS: Calcium 9.8 mg/dL (8.4-10.2); Potassium 3.5 mmol/L (3.5-5.1); Total Bilirubin 0.5 mg/dL (0.2-1.3); Total Protein 6.5 g/dL (6.3-8.2)
[2016-12-04] MEDS: CHOLECALCIFEROL 1,000 UNIT TAB PO SCH ×2 (08:58→20:10)
[2016-12-04] MEDS: CALCIUM CARBONATE 500 MG CHEWABLE PO SCH (08:58)
[2016-12-04] MEDS: PANTOPRAZOLE 40 MG TABLET PO SCH (08:58)
[2016-12-04] MEDS: METOPROLOL TARTRATE 12.5 MG TAB PO SCH ×2 (08:58→20:11)
[2016-12-04] MEDS: VALSARTAN 80 MG TAB PO SCH (08:58)
[2016-12-04] MEDS: ENOXAPARIN 30 MG/0.3 ML SYRINGE SQ SCH (08:58)
[2016-12-04] MEDS: HYDROCHLOROTHIAZIDE 25 MG TAB PO SCH (08:59)
[2016-12-04] MEDS: POTASSIUM CHLORIDE ORAL LIQUID 40 MEQ/30 ML CUP PO SCH (08:59)
[2016-12-04] MEDS ORDERED: LEVOFLOXACIN 250 MG TAB PO SCH (09:00)
[2016-12-04] MEDS: SODIUM CHLORIDE 0.9% 1,000 ML IV SCH (09:11)
[2016-12-04] MEDS: CRESTOR 5 MG PO SCH (09:30)
--- NOTE | 2016-12-04 09:32 | P.PN ---
Subjective Principal diagnosis: Right tibial plateau fracture This is a pleasant 76-year-old female who is admitted for right tibial plateau fracture. Patient states today she has noticed decreased swelling around the right knee. Patient has been compliant with her knee immobilizer. Patient states she did not need pain medication at all yesterday. Patient denies any numbness, weakness, tingling. Patient denies any new complaints today. Objective - Vital Signs Vital signs: Vital Signs Temp 96.3 F L 12/04/16 07:00 Pulse 86 12/04/16 07:53 Resp 18 12/04/16 07:00 BP 141/71 12/04/16 07:00 Pulse Ox 98 12/04/16 07:38 Intake & Output 12/03/16 12/04/16 12/04/16 18:59 06:59 18:59 Intake Total 160 Balance 160 Intake: Intake, IV Titration 160 Amount Sodium Chloride 0.9% 1, 160 000 ml @ 20 mls/hr IV . Q24H [facility] Rx#:[id number] Other: Voiding Method Bedpan # Voids 3 2 - Exam Immobilizer was removed for physical exam revealing ecchymosis and swelling around the right knee. Compartments are soft. Calf is soft and nontender. Patient has full foot and ankle motion. Neurovascular status is intact. Dorsalis pedis pulses 2+. - Labs CBC & Chem 7: 12/04/16 08:16 12/04/16 08:16 Labs: Abnormal Lab Results - Last 24 Hours (Table) 12/04/16 Range/Units 08:16 BUN 38 H (7-17) mg/dL Creatinine 2.13 H (0.52-1.04) mg/dL Glucose 102 H (74-99) mg/dL Albumin 3.3 L (3.5-5.0) g/dL Assessment and Plan (1) Tibial plateau fracture, right Status: Acute (2) Traumatic hematoma of right knee Status: Acute Plan: 1. Continue knee immobilizer and pain control. 2. Continue nonweightbearing status to the right lower extremity 3. Anticipate discharge to rehab on Tuesday.
--- NOTE | 2016-12-04 14:28 | P.PN ---
Subjective Principal diagnosis: Nondisplaced tibial fracture, COPD, bronchitis, severe hiatal hernia, CK D stage III, hypertension, hyperlipidemia, hypothyroidism and debility 76-year-old female [address] Ball[address] patient with past medical history of COPD and chronic bronchitis, history of hypertension, hyperlipidemia, and chronic history of hiatal hernia with multiple blood episode of aspiration pneumonia and infection repeatedly. 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 Pain become much worse over night ended up going to [facility] where was seen her CT of the leg showed prepatellar hematoma and nondisplaced medial Tibial plateau fracture. Patient requested to be transfer to see Dr. Shin Suarez. 12/03: The patient was seen and evaluated today. She was sitting up in her recliner with leg elevated and and in knee immobilizer. She is currently nonweightbearing. Kidney function BUN 41, creatinine 2.49, patient has known history of chronic kidney disease stage III. Incentive spirometer ordered today. She reports pain is controlled with current pain medications. Patient remains on Levaquin for her bronchitis and COPD. Her kidney function is slightly but better. Patient was seen physiatry Dr. Mariann egan agreeable to take her to rehab as early as Tuesday. Objective - Vital Signs Vital signs: Vital Signs Temp 96.3 F L 12/04/16 07:00 Pulse 88 12/04/16 12:27 Resp 18 12/04/16 07:00 BP 141/71 12/04/16 07:00 Pulse Ox 98 12/04/16 07:38 Intake & Output 12/03/16 12/04/16 12/04/16 18:59 06:59 18:59 Intake Total 160 Balance 160 Intake: Intake, IV Titration 160 Amount Sodium Chloride 0.9% 1, 160 000 ml @ 20 mls/hr IV . Q24H [facility] Rx#:[id number] Other: Voiding Method Bedpan # Voids 3 2 - Constitutional General appearance: Present: cooperative, disheveled, no acute distress - EENT Eyes: Present: normal appearance. Absent: abnormal pupil, anicteric sclerae, disc margins sharp, edentulous, EOMI, PERRLA, fundus normal, photophobia, dentition normal, poor dentition, ptosis, scleral icterus ENT: Present: hard of hearing, normal oropharynx. Absent: hearing grossly normal, NA/AT, other, pharyngeal erythema, thrush, tonsillar exudates, tonsillar swelling - Neck Neck: Present: normal ROM. Absent: lymphadenopathy, other, rigidity, stridor, thyromegaly Carotids: bilateral: upstroke normal, upstroke delayed Thyroid: bilateral: normal size, enlarged - Respiratory Respiratory: bilateral: CTA, diminished, rales - Cardiovascular Rhythm: regular Heart sounds: normal: S1, S2 Abnormal Heart Sounds: Present: systolic murmur, S3 Gallop - Gastrointestinal General gastrointestinal: Present: distended, normal bowel sounds, soft. Absent : absent bowel sounds, decreased bowel sounds, hepatomegaly, hyperactive bowel sounds, organomegaly, rigid, scaphoid, splenomegaly, tenderness, umbilical hernia, ventral hernia - Integumentary Integumentary: Present: normal, pale, rash - Neurologic Neurologic: Present: CNII-XII intact. Absent: focal deficits - Musculoskeletal Musculoskeletal: Present: gait normal, generalized weakness, strength equal bilaterally. Absent: right sided weakness, left sided weakness - Psychiatric Psychiatric: Present: A&O x's 3, appropriate affect. Absent: intact judgment & insight - Labs CBC & Chem 7: 12/04/16 08:16 12/04/16 08:16 Labs: Abnormal Lab Results - Last 24 Hours (Table) 12/04/16 Range/Units 08:16 BUN 38 H (7-17) mg/dL Creatinine 2.13 H (0.52-1.04) mg/dL Glucose 102 H (74-99) mg/dL Albumin 3.3 L (3.5-5.0) g/dL Assessment and Plan Plan: 1 nondisplaced medial tibial plateau fracture: Patient has a brace be on conservative management with limited weightbearing on the leg for few weeks. 2 COPD with mild exacerbation with recent episode remain on tapering dose of steroid along with albuterol and Pulmicort. 3 severe bronchitis: With recurrent episode of bronchitis and aspiration pneumonia has been on Levaquin will continue medication to finish her current course and dose. 4 severe hiatal hernia: Patient is on pantoprazole daily continue medication and if needed can add Pepcid daily as well. 5 hypertension: Remain on valsartan HCT and metoprolol. 6 Hypothyroidism continue levothyroxine. 7 CKD stage 3 doing much better with hydration creatinine is down to 2.23.. 8 Hyperlipidemia: On Crestor 5 mg a day. 9 GI prophylaxis: Patient will be on Protonix. 10 DVT prophylaxis: Patient will be on Lovenox 40 mg daily.
[2016-12-04] MEDS: MONTELUKAST 10 MG TAB PO SCH (20:11)
[2016-12-05] MEDS: LEVOTHYROXINE 88 MCG TAB PO SCH (06:22)
--- NOTE | 2016-12-05 09:13 | P.PN ---
Subjective Principal diagnosis: Right tibial plateau fracture This is a pleasant 76-year-old female who is admitted for right tibial plateau fracture. Patient states today she has noticed continued improvement in the swelling around the right knee. Patient has been compliant with her knee immobilizer. Patient states her pain is 0 out of 10 today. Patient states she is doing well transferred to a chair. Patient denies any numbness, weakness, tingling. Patient denies any new complaints today. Objective - Vital Signs Vital signs: Vital Signs Temp 97.9 F 12/05/16 07:00 Pulse 82 12/05/16 07:00 Resp 16 12/05/16 07:00 BP 107/67 12/05/16 07:00 Pulse Ox 91 L 12/05/16 07:00 Intake & Output 12/04/16 12/05/16 12/05/16 18:59 06:59 18:59 Intake Total 950 Balance 950 Intake: Oral 950 Other: Voiding Method Bedside Commode Bedpan # Voids 1 1 # Bowel Movements 0 - Exam Immobilizer was removed for physical exam revealing ecchymosis and swelling around the right knee. Compartments are soft. Calf is soft and nontender. Patient has full foot and ankle motion. Neurovascular status is intact. Dorsalis pedis pulses 2+. - Labs CBC & Chem 7: 12/04/16 08:16 12/04/16 08:16 Assessment and Plan (1) Tibial plateau fracture, right Status: Acute (2) Traumatic hematoma of right knee Status: Acute Plan: 1. Continue knee immobilizer and pain control. 2. Continue nonweightbearing status to the right lower extremity 3. Anticipate discharge to rehab on Tuesday.
[2016-12-05 09:26] LABS: Basophils % (A) 0 %; CH 28.7; CHCM 31.3; Eosinophils # (A) 0.5 k/uL (0-0.7); Eosinophils % (A) 5 %; HCT 39.1 % (34.0-46.0); HDW 2.27; HGB 12.4 gm/dL (11.4-16.0); Luc # (Auto) 0.12; Luc % (Auto) 1; Lymphocytes % (A) 10 %; MCH 29.1 pg (25.0-35.0); MCHC 31.7 g/dL (31.0-37.0); MCV 91.9 fL (80.0-100.0); Mean Platelet Volume 8.4; Monocytes # (A) 0.4 k/uL (0-1.0); Monocytes % (A) 5 %; Neutrophils # (A) 7.7 k/uL (1.3-7.7); Neutrophils % (A) 79 %; RBC 4.26 m/uL (3.80-5.40); RDW 14.9 % (11.5-15.5); WBC 9.7 k/uL (3.8-10.6); WBC (Perox) 9.69
[2016-12-05 09:33] LABS: Calcium 9.7 mg/dL (8.4-10.2); Potassium 3.3 mmol/L (3.5-5.1); Total Bilirubin 0.5 mg/dL (0.2-1.3); Total Protein 6.4 g/dL (6.3-8.2)
[2016-12-05] MEDS: POTASSIUM CHLORIDE ORAL LIQUID 40 MEQ/30 ML CUP PO SCH (09:44)
[2016-12-05] MEDS: VALSARTAN 80 MG TAB PO SCH (09:45)
[2016-12-05] MEDS: PANTOPRAZOLE 40 MG TABLET PO SCH (09:45)
[2016-12-05] MEDS: CHOLECALCIFEROL 1,000 UNIT TAB PO SCH ×2 (09:45→20:15)
[2016-12-05] MEDS: ENOXAPARIN 30 MG/0.3 ML SYRINGE SQ SCH (09:45)
[2016-12-05] MEDS: CALCIUM CARBONATE 500 MG CHEWABLE PO SCH (09:45)
[2016-12-05] MEDS: CRESTOR 5 MG PO SCH (09:45)
[2016-12-05] MEDS: METOPROLOL TARTRATE 12.5 MG TAB PO SCH ×2 (09:45→20:15)
[2016-12-05] MEDS: HYDROCHLOROTHIAZIDE 25 MG TAB PO SCH (09:46)
[2016-12-05] MEDS: IPRATROPIUM-ALBUTEROL 3 ML NEB INHALATION PRN ×3 (11:39→20:10)
--- NOTE | 2016-12-05 14:19 | P.PN ---
Subjective Principal diagnosis: Nondisplaced tibial fracture, COPD, bronchitis, severe hiatal hernia, CK D stage III, hypertension, hyperlipidemia, hypothyroidism and debility 76-year-old female [address] Ball's patient with past medical history of COPD and chronic bronchitis, history of hypertension, hyperlipidemia, and chronic history of hiatal hernia with multiple blood episode of aspiration pneumonia and infection repeatedly. Patient was transferred from 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 Pain become much worse over night ended up going to [facility] where was seen her CT of the leg showed prepatellar hematoma and nondisplaced medial Tibial plateau fracture. Patient requested to be transfer to see Dr. Shin Suarez. 12/03: The patient was seen and evaluated today. She was sitting up in her recliner with leg elevated and and in knee immobilizer. She is currently nonweightbearing. Kidney function BUN 41, creatinine 2.49, patient has known history of chronic kidney disease stage III. Incentive spirometer ordered today. She reports pain is controlled with current pain medications. Patient remains on Levaquin for her bronchitis and COPD. Her kidney function is slightly but better. Patient was seen physiatry Dr. Mariann egan agreeable to take her to rehab as early as Tuesday. Patient is stable today on 12/05/2016 still doing better with physical therapy bun and creatinine has improved some hopefully patient be discharged to [facility] rehab tomorrow. BUN/creatinine are much better today creatinine is down to 1.7. Objective - Vital Signs Vital signs: Vital Signs Temp 97.9 F 12/05/16 07:00 Pulse 88 12/05/16 11:53 Resp 16 12/05/16 07:00 BP 107/67 12/05/16 07:00 Pulse Ox 91 L 12/05/16 07:00 Intake & Output 12/04/16 12/05/16 12/05/16 18:59 06:59 18:59 Intake Total 950 Balance 950 Intake: Oral 950 Other: Voiding Method Bedside Commode Bedpan # Voids 1 1 # Bowel Movements 0 - Constitutional General appearance: Present: cooperative, disheveled, no acute distress. Absent : average body habitus, mild distress, morbidly obese, obese, severe distress, thin - EENT Eyes: Present: normal appearance. Absent: abnormal pupil, anicteric sclerae, disc margins sharp, edentulous, EOMI, PERRLA, fundus normal, photophobia, dentition normal, poor dentition, ptosis, scleral icterus ENT: Present: normal oropharynx. Absent: hard of hearing, hearing grossly normal, NA/AT, other, pharyngeal erythema, thrush, tonsillar exudates, tonsillar swelling Ears: bilateral: normal - Neck Neck: Present: normal ROM. Absent: lymphadenopathy, other, rigidity, stridor, thyromegaly Carotids: bilateral: upstroke normal Thyroid: bilateral: normal size - Respiratory Respiratory: bilateral: diminished, dullness - Cardiovascular Rhythm: regular Heart sounds: normal: S1, S2 Abnormal Heart Sounds: Present: systolic murmur - Gastrointestinal General gastrointestinal: Present: decreased bowel sounds, soft - Integumentary Integumentary Comment(s): Leg still and brace currently not been able to put any weight on it. Integumentary: Present: normal, pale, rash. Absent: calor, cellulitis, cyanotic , decreased turgor, flushed, jaundiced, normal turgor, ulcer - Neurologic Neurologic: Present: CNII-XII intact - Musculoskeletal Musculoskeletal: Present: gait normal, generalized weakness, strength equal bilaterally - Psychiatric Psychiatric: Present: A&O x's 3, appropriate affect - Labs CBC & Chem 7: 12/05/16 08:58 12/05/16 08:58 Labs: Abnormal Lab Results - Last 24 Hours (Table) 12/05/16 Range/Units 08:58 Potassium 3.3 L (3.5-5.1) mmol/L BUN 36 H (7-17) mg/dL Creatinine 1.70 H (0.52-1.04) mg/dL Glucose 130 H (74-99) mg/dL Albumin 3.4 L (3.5-5.0) g/dL Assessment and Plan Plan: 1 nondisplaced medial tibial plateau fracture: Patient has a brace be on conservative management with limited weightbearing on the leg for few weeks. Apparently was accepted to [facility] for 1-[address] Waite 2 COPD with mild exacerbation with recent episode remain on tapering dose of steroid along with albuterol and Pulmicort. 3 severe bronchitis: With recurrent episode of bronchitis and aspiration pneumonia has been on Levaquin will continue medication to finish her current course and dose. 4 severe hiatal hernia: Patient is on pantoprazole daily continue medication and if needed can add Pepcid daily as well. 5 hypertension: Remain on valsartan HCT and metoprolol. 6 Hypothyroidism continue levothyroxine. 7 CKD stage 3 doing much better with hydration creatinine is down to 1.7. 8 Hyperlipidemia: On Crestor 5 mg a day. 9 GI prophylaxis: Patient will be on Protonix. 10 DVT prophylaxis: Patient will be on Lovenox 40 mg daily. Discharge planning: Hopefully patient be able to go to [facility] rehab tomorrow.
[2016-12-05] MEDS: MONTELUKAST 10 MG TAB PO SCH (20:15)
[2016-12-06] MEDS: LEVOTHYROXINE 88 MCG TAB PO SCH (06:25)
[2016-12-06] MEDS: IPRATROPIUM-ALBUTEROL 3 ML NEB INHALATION PRN ×2 (07:21→11:15)
[2016-12-06] MEDS: POTASSIUM CHLORIDE ORAL LIQUID 40 MEQ/30 ML CUP PO SCH (08:07)
[2016-12-06] MEDS: METOPROLOL TARTRATE 12.5 MG TAB PO SCH (08:08)
[2016-12-06] MEDS: VALSARTAN 80 MG TAB PO SCH (08:08)
[2016-12-06] MEDS: ENOXAPARIN 30 MG/0.3 ML SYRINGE SQ SCH (08:08)
[2016-12-06] MEDS: CHOLECALCIFEROL 1,000 UNIT TAB PO SCH (08:08)
[2016-12-06] MEDS: PANTOPRAZOLE 40 MG TABLET PO SCH (08:08)
[2016-12-06] MEDS: FUROSEMIDE 40 MG TAB PO SCH (08:08)
[2016-12-06] MEDS: HYDROCHLOROTHIAZIDE 25 MG TAB PO SCH (08:08)
[2016-12-06] MEDS: CRESTOR 5 MG PO SCH (08:08)
[2016-12-06] MEDS: CALCIUM CARBONATE 500 MG CHEWABLE PO SCH (08:09)
[2016-12-06] MEDS: HYDROcodone/APAP 5-325MG 1 EACH TAB PO PRN ×2 (08:13→12:56)
--- NOTE | 2016-12-06 09:43 | P.DS ---
Providers Date of admission: 12/02/16 07:41 Expected date of discharge: 12/06/16 Attending physician: Kirk Castillo Consults: 12/02/16 07:40 Consult Physician Routine Consulting Provider: Julio Werner Consult Reason/Comments: medical consultation Do you want consulting provider notified?: Yes 12/03/16 11:01 Consult Physician Routine Consulting Provider: Sander Waite Consult Reason/Comments: Rehab evaluation Do you want consulting provider notified?: Yes Primary care physician: Guerrero Ball - Discharge Diagnosis(es) (1) Tibial plateau fracture, right Current Visit: Yes Status: Acute (2) Traumatic hematoma of right knee Current Visit: Yes Status: Acute Hospital Course: This is a 76-year-old female with known history of tibial plateau fracture of the right lower extremity. Patient sustained this injury to the right knee after a fall on 12/01/2016. Patient was evaluated at [facility] emergency room and found to have a nondisplaced tibial plateau fracture. This was confirmed with CT scan. Patient was transferred to [facility] from [facility] and admitted as an inpatient on 12/02/2016. Patient was placed in a knee immobilizer and made nonweightbearing to the right lower extremity. No surgical intervention was planned. Patient is doing well on day of discharge. Labs and vital signs are stable on day of discharge. On day of discharge there is improvement in swelling of the right lower extremity. There is still diffuse ecchymosis. The right knee is tender to palpation. Compartments are soft. Patient has full foot and ankle motion without difficulty. There is some discomfort with range of motion of the right ankle due to the swelling associated with right lower extremity. Calves are soft and nontender. Negative Homans sign. Neurovascular status to the right lower extremity is intact. Patient is discharged to rehab in good condition. Please see med rec for accurate list of home medications. Patient Condition at Discharge: Stable Plan - Discharge Summary New Discharge Prescriptions: New HYDROcodone/APAP 5-325MG [[place] 5-325] 1 - 2 each PO Q4-6H PRN #90 tab PRN Reason: Pain Sennosides-Docusate Sodium [Senokot-S] 1 tab PO BID #60 tablet No Action methylPREDNISolone Dose Pack [Medrol Dose Pack] See Taper PO DAILY Levofloxacin [Levaquin] 500 mg PO DAILY Furosemide [Lasix] 40 mg PO MOWEFR Cholecalciferol (Vitamin D3) [Vitamin D3] 2,000 unit PO BID Rosuvastatin Calcium [Crestor] 5 mg PO DAILY Omeprazole 20 mg PO DAILY Levothyroxine Sodium 88 mcg PO DAILY Montelukast [Singulair] 10 mg PO HS Fish Oil/Dha/Epa [Fish Oil 1,200 mg Fish Oil] 1 cap PO DAILY Potassium 99 mg PO DAILY Valsartan/Hydrochlorothiazide [Valsartan-Hctz 160-12.5 mg Tab] 0.5 tab PO DAILY Metoprolol Tartrate [Lopressor] 12.5 mg PO BID Calcium Carbonate [Calcium] 600 mg PO DAILY Discharge Medication List Calcium Carbonate [Calcium] 600 mg PO DAILY 12/02/16 [History] Cholecalciferol (Vitamin D3) [Vitamin D3] 2,000 unit PO BID 12/02/16 [History] Fish Oil/Dha/Epa [Fish Oil 1,200 mg Fish Oil] 1 cap PO DAILY 12/02/16 [History] Furosemide [Lasix] 40 mg PO MOWEFR 12/02/16 [History] Levofloxacin [Levaquin] 500 mg PO DAILY 12/02/16 [History] Levothyroxine Sodium 88 mcg PO DAILY 12/02/16 [History] Metoprolol Tartrate [Lopressor] 12.5 mg PO BID 12/02/16 [History] Montelukast [Singulair] 10 mg PO HS 12/02/16 [History] Omeprazole 20 mg PO DAILY 12/02/16 [History] Potassium 99 mg PO DAILY 12/02/16 [History] Rosuvastatin Calcium [Crestor] 5 mg PO DAILY 12/02/16 [History] Valsartan/Hydrochlorothiazide [Valsartan-Hctz 160-12.5 mg Tab] 0.5 tab PO DAILY 12/02/16 [History] methylPREDNISolone Dose Pack [Medrol Dose Pack] See Taper PO DAILY 12/02/16 [ History] HYDROcodone/APAP 5-325MG [[place] 5-325] 1 - 2 each PO Q4-6H PRN #90 tab 12/03/16 [Rx] Sennosides-Docusate Sodium [Senokot-S] 1 tab PO BID #60 tablet 12/03/16 [Rx] Follow up Appointment(s)/Referral(s): Guerrero Ball MD [Primary Care Provider] - 1-2 days [facility], [NON-STAFF] - Shin Suarez MD [STAFF PHYSICIAN] - 2 Weeks Patient Instructions/Handouts: Leg Fracture (DC), Fall Prevention (DC) Activity/Diet/Wound Care/Special Instructions: Cardiac diet. Nonweight bearing to right leg, fall precautions, keep immobilizer on during activities, may take off at night.
[2016-12-06 12:51] VITALS: BP 114/59; PULSE 73; RESP 18; TEMP 97.4
== END 2016-12-06 14:27 | DRG 563 ==
LOC: EC 03:50 → 4MS4W 07:41 → OBSVTOIN 12-06 09:39
PROVIDERS: ADMIT Orthopaedic Surgery; ATTEND Orthopaedic Surgery
DX: S82.144A Nondisplaced bicondylar fracture of right tibia, initial encounter for closed fracture (principal); E66.01 Morbid (severe) obesity due to excess calories; J44.9 Chronic obstructive pulmonary disease, unspecified; N18.3 Chronic kidney disease, stage 3 (moderate); I12.9 Hypertensive chronic kidney disease with stage 1 through stage 4 chronic kidney disease, or unspecified chronic kidney disease; E03.9 Hypothyroidism, unspecified; E78.5 Hyperlipidemia, unspecified; I25.2 Old myocardial infarction; K21.9 Gastro-esophageal reflux disease without esophagitis; K44.9 Diaphragmatic hernia without obstruction or gangrene; S80.01XA Contusion of right knee, initial encounter; H26.9 Unspecified cataract; J45.909 Unspecified asthma, uncomplicated; I08.3 Combined rheumatic disorders of mitral, aortic and tricuspid valves; Z79.899 Other long term (current) drug therapy; Z87.891 Personal history of nicotine dependence; Z88.2 Allergy status to sulfonamides; Z88.8 Allergy status to other drugs, medicaments and biological substances; Z91.040 Latex allergy status; Z82.49 Family history of ischemic heart disease and other diseases of the circulatory system; W01.0XXA Fall on same level from slipping, tripping and stumbling without subsequent striking against object, initial encounter; Y92.89 Other specified places as the place of occurrence of the external cause
CPT/HCPCS: 80053; 85025; 94640; 94760; 96374; 99285

== ENCOUNTER → 2021-05-01 | Outpatient (CLI) | payer MEDICARE, OTHER ==
--- NOTE | 2021-05-04 09:24 | PE ---
EXAMINATION TYPE: PET CT fusion skull to thigh DATE OF EXAM: 05/01/2021 COMPARISON: NONE HISTORY: Newly diagnosed esophageal cancer on biopsy March 30. TECHNIQUE: Following the intravenous administration of 8.94 mCi of F-18 FDG, whole body images are p erformed from the skull base to the midthigh. Images are reviewed on the computer in the coronal, ax ial, and sagittal planes. Reconstructed rotating images are created on independent workstation and r eviewed on the computer. A localization and attenuation correction CT is performed in conjunction w ith the PET scan. Blood glucose level equals 64 SCAN: Initial Scan FINDINGS: SKULL BASE AND NECK: Absent left thyroid lobe. Abnormal hypermetabolic uptake corresponds to remnant normal size right thyroid lobe. Correlate clinically for hyperthyroidism. CHEST, MEDIASTINUM, AND HILAR REGION: There is moderate to large size hiatal hernia. Abnormal hyperme tabolic uptake in the distal esophagus just above hiatal hernia axial image 94 over a short segment w here there is only mild to moderate wall thickening, max SUV is. Underlying emphysematous change in the lungs. No additional areas of abnormal hypermetabolic uptake. ABDOMEN AND PELVIS: Subtle hypermetabolic lesions throughout the liver, estimated 4-5 lesions though superior lesions may reflect adjacent adenopathy. Lesions less well seen on noncontrast CT. Max SUV i s. Nonspecific bowel uptake particularly with near cecum. Normal excretion. No additional areas of abnor mal hypermetabolic uptake. OSSEOUS STRUCTURES: Suspicious hypermetabolic lesions, for reference inferior L1 lesion posteriorly t o left of midline axial image 133 with subtle lucency on CT, max SUV is. Suspicious hypermetabolic T7 lesion posteriorly in the midline axial image 88 with possible subtle sclerosis or sclerotic lesion on CT, max SUV is. OTHER CT: Prominent right and left pulmonary arteries consistent with underlying pulmonary artery hyp ertension. Cardiomegaly with coronary artery calcification is present. Exophytic simple-appearing thin-walled cysts scattered throughout the right kidney. Uterus is surgica lly absent. Underlying scoliotic curvature. Exaggerated thoracic kyphosis. IMPRESSION: Findings consistent with known distal esophageal neoplasm. Hepatic and osseous metastatic disease noted. Other findings as noted above. Max SUV values will be provided on addendum.
== END | disposition home or self-care (01) ==
LOC: RADPETMAIN 17:10
PROVIDERS: ATTEND Internal Medicine Hematology & Oncology
DX: C15.5 Malignant neoplasm of lower third of esophagus (principal)
CPT/HCPCS: 78815; A9552

== ENCOUNTER → 2021-08-14 | Outpatient (CLI) | payer MEDICARE ==
--- NOTE | 2021-08-17 15:21 | PE ---
Nuclear medicine PET/CT history: Esophageal carcinoma, follow-up C 15.5 Patient received 11.5 mCi F-18 FDG intravenously and delayed scanning was performed from the skull ba se of the mid thighs. A localization and attenuation correction CT scan was performed. Correlation to prior nuclear medicine PET/CT 05/01/2021. Average mediastinal uptake SUV is 2.1. Average liver uptake SUV is approximately 3. Chest and neck: The abnormal uptake associated with the right lobe of the thyroid gland shows a simil ar appearance to prior exam SUV 9.8. Patient is post left thyroidectomy. No supraclavicular or cervic al lymph adenopathy. There is a cavitary nodule present in the right upper lobe with thickened wall measuring approximatel y 11 mm not seen on prior exam, SUV is 1.8. Additionally along the major fissure on the right there i s a soft tissue nodule measuring 2 cm that is developed in the interval with associated uptake, SUV 2 .4. Mediastinal retrocaval pretracheal node shows a similar appearance, no associated hypermetabolic uptake. Coronary artery calcifications present. No pleural or pericardial effusion. Bandlike area of thickening along the fissure on the left lung base shows a similar appearance without uptake. There i s right middle lobe bronchiectasis and atelectasis similar to prior without uptake. ABDOMEN: Multiple foci of abnormal uptake seen in the liver are no longer evident. There is a large h iatal hernia with partial intrathoracic stomach seen as on prior, the uptake along the distal esophag us is no longer seen. No retroperitoneal adenopathy or ascites. No adrenal mass. Right-sided hydroure ter is present, there are right-sided nonobstructive renal calculi. No definitive distal ureteral frandy culus identified. Bladder wall thickening is noted. Postop changes are present, patient is status pos t hysterectomy. No pelvic adenopathy. Anterior abdominal wall hernia the umbilical region shows a sim ilar appearance and contains fat. Osseous structures show no suspicious uptake. IMPRESSION: Mixed response as described.
== END | disposition home or self-care (01) ==
LOC: RADPETMAIN 10:02
PROVIDERS: ATTEND Internal Medicine Hematology & Oncology
DX: C15.5 Malignant neoplasm of lower third of esophagus (principal)
CPT/HCPCS: 78815; A9552

== ENCOUNTER → 2021-11-20 | Outpatient (CLI) | payer MEDICARE ==
--- NOTE | 2021-11-24 10:13 | PE ---
Greater medicine PET/CT HISTORY: Esophageal cancer, C 15.5, subsequent Patient received 10.2 mCi F-18 FDG intravenously and delayed scanning was performed from skull base t o the mid thighs. A localization and attenuation correction CT scan was performed. Correlation prior nuclear medicine PET/CT 08/14/2021 Average mediastinal uptake SUV 2.1, average liver uptake SUV 2.7 Chest and neck: Hyperintense uptake involving the right lobe of the thyroid is again noted, SUV 8.6. No cervical or supraclavicular adenopathy, no axillary adenopathy. There is a right upper lobe lung mass which is increased in size and now measures approximately 4 cm in transverse dimension extending along the fissure and there are pleural extensions, SUV 4.6. Right middle lobe shows some probable chronic consolidation with some associated bronchiectasis. There is s ome mild right hilar uptake, SUV 3.4. Within the hiatal hernia some focal dave uptake is suspected, SUV 4.1 and 6.9. Some retroperitoneal activity is also present, SUV 3.8. There is a right upper lobe lung nodule present subcentimeter in size without significant uptake evident. Focal dave uptake isrrael g the esophagus at the thoracic inlet shows SUV 2.9, some subcentimeter nodularity present in the rig ht upper lobe without definitive associated uptake. Some bronchiectasis present along the fissure. Holm bcentimeter nodule posterior lung base on the left shows no associated uptake. ABDOMEN: There are at least 3-4 foci of abnormal uptake within the liver, SUV 9.7 and 8.2 for the mor e intense foci. No evident retroperitoneal adenopathy. No ascites. Retroaortic left renal vein noted incidentally. Multiple cortical cysts associated with the right kidney, there is nonobstructive calcu osmar towards the lower pole in the right. Periumbilical hernia contains fat. Osseous structures: New foci of uptake are present involving the distal right clavicle, SUV 6.3, uppe r thoracic lamina on the right SUV 5.3, thoracic vertebral body SUV 8, 4.9, upper lumbar posterior el ements on the right SUV 4.1, vertebral body shows an SUV of 6.8O lumbar spine and towards the lower l umbar spine focus of uptake shows SUV 5.7, left ilium SUV 4.5 and left sacrum SUV 4.2, left acetabulu m SUV 5.4, proximal right femur SUV 4.3. IMPRESSION: There is been progression of patient's metastatic disease.
== END | disposition home or self-care (01) ==
LOC: RADPETMAIN 08:46
PROVIDERS: ATTEND Internal Medicine Hematology & Oncology
DX: C15.5 Malignant neoplasm of lower third of esophagus (principal)
CPT/HCPCS: 78815; A9552